=== PATIENT | female | born 1980 | race Caucasian/White ===

== ENCOUNTER 2020-07-27 17:21 | Emergency (ER) | payer MEDICAID, SELFPAY ==
[2020-07-27 17:22] VITALS: BP 105/76; PULSE 86; RESP 24; TEMP 36.4; O2SAT 100; BMI 29.7
[2020-07-27 17:35] VITALS: BP 105/76
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
[2020-07-27] MEDS: morphine 8 MG/ML Syringe 6 MG IV (17:40)
[2020-07-27] MEDS: Ondansetron 4 MG/2 ML Vial IV (17:40)
[2020-07-27 17:46] VITALS: O2SAT 95
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
[2020-07-27 18:31] VITALS: BP 103/71; PULSE 71; RESP 15; O2SAT 97
--- NOTE | 2020-07-27 19:23 | ED.DEP ---
ED Disposition - Plan for ED Patient: Disposition: Home or Assisted Living Instructions: ED Sprain Ankle W X Ray, ED Laceration Foot Prescriptions: Cephalexin [Keflex] 500 mg PO Q12 #10 cap Prescription Printed Hydrocodone/Acetaminophen [[place] 7.5-325 Tablet] 1 ea PO Q4H PRN PRN #14 tab PRN Reason: Pain Or Fever Prescription Printed Referrals: [facility] Doctor,Out of [NON-STAFF] - Additional Instructions: No weightbearing until swelling is much better and the pain is resolving. Ice and elevate for least 30 minutes at a time at least 5 times a day for the next 3 days. Crutches to get around. Only start weightbearing when the swelling is resolving and the pain is much better. Call and follow-up with either an orthopedic ankle specialist in [place] or nuclear physician to have this reevaluated. There is no broken bone or dislocation seen on these films. However you could have a significant tendon or ligament injury besides just being sprain. If not improving or the swelling continues they may need to get an MRI of your ankle. Keep the laceration clean and dry. You may get a shower but do not soak it in water. Dry thoroughly. Apply antibiotic ointment at least twice daily. Watch for any signs of infection such as pus, redness, streaks or fever. Is seen get seen. Keflex twice a day for 5 days to try to prevent any infection. Suture removal in 7 to 10 days.
[2020-07-27] MEDS: HYDROcodone Bitartrate/Apap 5/325 Tablet PO (19:37)
[2020-07-27 19:40] VITALS: BP 116/84; PULSE 72; RESP 18; O2SAT 97
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
[2020-07-27 20:46] VITALS: BP 117/76; PULSE 66; RESP 12; O2SAT 99
== END 2020-07-27 20:48 | disposition home or self-care (01) ==
PROVIDERS: Emergency Provider Emergency Medicine
DX: S93.401A Sprain of unspecified ligament of right ankle, initial encounter (principal); S91.011A Laceration without foreign body, right ankle, initial encounter; S00.83XA Contusion of other part of head, initial encounter; V86.99XA Unspecified occupant of other special all-terrain or other off-road motor vehicle injured in nontraffic accident, initial encounter; Y93.9 Activity, unspecified; Y92.9 Unspecified place or not applicable; Y99.9 Unspecified external cause status; K21.9 Gastro-esophageal reflux disease without esophagitis; Z79.899 Other long term (current) drug therapy
CPT/HCPCS: 12002; 73590; 73610; 96374; 96375; 99285; A4216; J2405